=== PATIENT | female | born 1945 | race Caucasian/White ===

== ENCOUNTER 2022-02-22 10:15 | Emergency (ER) | payer MEDICARE, SELFPAY ==
--- NOTE | ~2022-02-22 | XR_ITS ---
EXAMINATION: XR KNEE, RIGHT CLINICAL INFORMATION: Right medial knee pain after fall COMPARISON: None TECHNIQUE: Four views of the right knee. FINDINGS: Bones have normal alignment. The joint spaces are normal. No arthritic deformity. No fracture, subluxation or joint effusion. Small enthesophyte is present at the upper pole of the patella. XR/XR knee RT 4V IMPRESSION: No acute findings. No fracture or malalignment at the right knee.
[2022-02-22 10:37] VITALS: BP 152/46; PULSE 74; RESP 16; TEMP 36.7; O2SAT 100; BMI 19.3
[2022-02-22 14:42] VITALS: BP 182/77; PULSE 73; RESP 16; TEMP 36.9; O2SAT 100
--- OUTSIDE RECORDS SUMMARY | 2022-02-22 14:50 | XMS_ITS | Continuity of Care Document ---
:1945 Author Organization [facility] Address [address] [phone]- Care Team Providers Name Role Phone Brittni Stern MD Primary Care Physician Encounter [facility] NB [id number] Date(s): 07/12/21 - 08/11/21 [facility] [address] [place] [address]- Attending Physician: Tomeka Dumas Admitting Physician: Tomeka Dumas Referring Physician: AdmtrTomeka Allergies, Adverse Reactions, Alerts No Known Medication Allergies Immunizations Given and Recorded Vaccine Date Status Refusal Reason SARS-CoV-2 (COVID-19) Ad26 vaccine 08/18/20 Recorded pneumococcal 23-valent vaccine1 10/26/17 Given tetanus/diphtheria/pertussis, acel(Tdap) 10/28/16 Given pneumococcal 13-valent vaccine 10/28/16 Given 1Result Comment: [10/26/2017] [facility]# [id number] Medications alendronate 70 mg oral tablet 1 tablet = 70 mg, By Mouth, Every week, dx: osteoporosis, # 12 tablet, 3 Refills, Maintenance, 07/10/20 8:06:00 EDT, Tablet, [facility]/pharmacy #[id number], 157, cm, 07/10/20 7:42:00 EDT, Height Start Date: 07/10/20 Stop Date: 06/11/21 Status: Orderedmetoprolol 25 mg oral tablet 50 mg, 2, tablet, By Mouth, Daily, # 180 tablet, Refills 3, Tot. Refills 3, Maintenance, 07/10/20 8:07:00 EDT, Route to Pharmacy Electronically, [facility]/pharmacy #[id number], 157, cm, 07/10/20 7:42:00 EDT, Height Start Date: 07/10/20 Stop Date: 07/05/21 Status: OrderedVitamin D3 2000 intl units oral tablet 1 tablet = 2,000 International_Units, By Mouth, Daily, please take daily per Dr. Stenr., # 90 tablet, 1 Refills, Maintenance, 05/20/18 19:36:34 EST Start Date: 05/20/18 Stop Date: 11/16/18 Status: Ordered Problem List Condition Effective Dates Status Health Status Informant Alcoholism(Confirmed) Active Essential hypertension(Confirmed) Active Osteoporosis(Confirmed) Active Vitamin D deficiency(Confirmed) Active Social History Social History Type Response Smoking Status Never (less than 100 in life time) entered on: 07/10/20 Sex
--- OUTSIDE RECORDS SUMMARY | 2022-02-22 14:50 | XMS_ITS | Continuity of Care Document ---
:1945 Author Organization [facility] Address [address] [place] [address]- Care Team Providers Name Role Phone Brittni Stern MD Primary Care Physician Encounter [facility] NBR [id number] Date(s): 07/10/20 - 07/17/20 [facility] [address] [place] [address] Attending Physician: Brittni Stern MD Allergies, Adverse Reactions, Alerts No Known Medication Allergies Immunizations Given and Recorded Vaccine Date Status Refusal Reason pneumococcal 23-valent vaccine1 10/26/17 Given tetanus/diphtheria/pertussis, acel(Tdap) 10/28/16 Given pneumococcal 13-valent vaccine 10/28/16 Given 1Result Comment: [10/26/2017] [facility]# [id number] Medications alendronate 70 mg oral tablet 1 tablet = 70 mg, By Mouth, Every week, dx: osteoporosis, # 12 tablet, 3 Refills, Maintenance, 07/10/20 8:06:00 EDT, Tablet, [facility]/pharmacy #[id number], 157, cm, 07/10/20 7:42:00 EDT, Height Start Date: 07/10/20 Stop Date: 06/11/21 Status: Orderedmetoprolol 25 mg oral tablet 50 mg, 2, tablet, By Mouth, Daily, # 180 tablet, Refills 3, Tot. Refills 3, Maintenance, 07/10/20 8:07:00 EDT, Route to Pharmacy Electronically, [facility]/pharmacy #[id number], 157, cm, 07/10/20 7:42:00 EDT, Height Start Date: 07/10/20 Stop Date: 07/05/21 Status: OrderedVitamin D3 2000 intl units oral tablet 1 tablet = 2,000 International_Units, By Mouth, Daily, please take daily per Dr. Stern., # 90 tablet, 1 Refills, Maintenance, 05/20/18 19:36:34 EST Start Date: 05/20/18 Stop Date: 11/16/18 Status: Ordered Problem List Condition Effective Dates Status Health Status Informant Alcoholism(Confirmed) Active Essential hypertension(Confirmed) Active Osteoporosis(Confirmed) Active Vitamin D deficiency(Confirmed) Active Vital Signs Most recent to oldest [Reference Range]: 1 Height 157 cm (07/10/20 7:42 AM) Weight 53.5 kg (07/10/20 7:42 AM) Oxygen Saturation [94-100 %] 98 % (07/10/20 7:42 AM) Pulse Rate [55-90 bpm] 62 bpm (07/10/20 7:42 AM) Body Mass Index [18.5-24.99] 21.7 (07/10/20 7:42 AM) Blood Pressure [90-138/55-84 mm Hg] 138/72 mm Hg (07/10/20 7:42 AM) Blood pressure sites Arm, left (07/10/20 7:42 AM) Weight Obtained Via Standing scale (07/10/20 7:42 AM) Social History Social History Type Response Smoking Status Never (less than 100 in life time) entered on: 07/10/20 Sex
--- OUTSIDE RECORDS SUMMARY | 2022-02-22 14:51 | XMS_ITS | Continuity of Care Document ---
:1945 [facility] Address [address] [phone]- Care Team Providers Name Role Phone Brittni Stern MD Primary Care Physician Encounter [facility] NB [id number] Date(s): 11/04/21 - 12/04/[facility] [address] [place] [address]- Attending Physician: Tomeka Dumas Admitting Physician: AdmTomeka flores Referring Physician: AdmtrTomeka Allergies, Adverse Reactions, Alerts No Known Medication Allergies Immunizations Given and Recorded Vaccine Date Status Refusal Reason SARS-CoV-2 (COVID-19) Ad26 vaccine 08/18/20 Recorded pneumococcal 23-valent vaccine1 10/26/17 Given tetanus/diphtheria/pertussis, acel(Tdap) 10/28/16 Given pneumococcal 13-valent vaccine 10/28/16 Given 1Result Comment: [10/26/2017] [facility]# [id number] Medications alendronate 70 mg oral tablet 1 tablet = 70 mg, By Mouth, Every week, dx: osteoporosis, # 12 tablet, 3 Refills, Maintenance, 07/10/20 8:06:00 EDT, Tablet, [facility]/pharmacy #[id number], 157, cm, 07/10/20 7:42:00 EDT, Height Start Date: 07/10/20 Stop Date: 06/11/21 Status: Orderedmetoprolol 25 mg oral tablet 50 mg, 2, tablet, By Mouth, Daily, # 180 tablet, Refills 3, Tot. Refills 3, Maintenance, 08/12/21 11:32:00 EDT, Route to Pharmacy Electronically, [facility]/pharmacy #[id number], 157, cm, 07/10/20 7:42:00 EDT, Height Start Date: 08/12/21 Stop Date: 08/07/22 Status: OrderedVitamin D3 2000 intl units oral [...]
--- OUTSIDE RECORDS SUMMARY | 2022-02-22 14:51 | XMS_ITS | Continuity of Care Document ---
:1945 Author Organization [facility] Address [address] [place] [address]- Care Team Providers Name Role Phone Brittni Stern MD Primary Care [id number] Date(s): 08/10/19 - 12/08/19 [facility] [address] [place] [address]- Attending Physician: Brittni Stern MD Allergies, Adverse Reactions, Alerts No Known Medication Allergies Immunizations Given and Recorded Vaccine Date Status Refusal Reason pneumococcal 23-valent vaccine1 10/26/17 Given tetanus/diphtheria/pertussis, acel(Tdap) 10/28/16 Given pneumococcal 13-valent vaccine 10/28/16 Given 1Result Comment: [10/26/2017] [facility]# [id number] Medications alendronate 70 mg oral tablet 1 tablet = 70 mg, By Mouth, Every week, dx: osteoporosis, # 12 tablet, 3 Refills, Maintenance, 11/02/18 10:27:36 EDT, Tablet Start Date: 11/02/18 Stop Date: 10/04/19 Status: Orderedmetoprolol 25 mg oral tablet 50 mg, 2, tablet, By Mouth, Daily, # 180 tablet, Refills 3, Tot. Refills 3, Maintenance, 11/02/18 10:27:36 EDT, Route to Pharmacy Electronically, [id number], [facility]/pharmacy #[id number] Start Date: 11/02/18 Status: OrderedVitamin D3 2000 intl units oral tablet 1 tablet = 2,000 International_Units, By Mouth, Daily, please take daily per Dr. Stern., # 90 tablet, 1 Refills, Maintenance, 02/03/19 19:36:34 EST Start Date: 05/20/18 Stop Date: 11/16/18 Status: Ordered Problem List Condition Effective Dates Status Health Status Informant Alcoholism(Confirmed) Active Essential hypertension(Confirmed) Active Osteoporosis(Confirmed) Active Vitamin D deficiency(Confirmed) Active Social History Social History Type Response Smoking Status Never smoker entered on: 09/30/16 Sex
--- OUTSIDE RECORDS SUMMARY | 2022-02-22 14:51 | XMS_ITS | Continuity of Care Document ---
:1945 Author Organization [facility] Address [address] [place] [address]- Care Team Providers Name Role Phone Brittni Stern MD Primary Care Physician Encounter [facility] NBR [id number] Date(s): 11/08/19 - 12/08/19 [facility] [address] [place] [address]- Attending Physician: Tomeka Dumas Admitting Physician: AdmTomeka flores Referring Physician: Admtr, Ar8 Allergies, Adverse Reactions, Alerts No Known Medication Allergies Immunizations Given and Recorded Vaccine Date Status Refusal Reason pneumococcal 23-valent vaccine1 10/26/17 Given tetanus/diphtheria/pertussis, acel(Tdap) 10/28/16 Given pneumococcal 13-valent vaccine 10/28/16 Given 1Result Comment: [10/26/2017] [facility]# [id number] Medications alendronate 70 mg oral tablet 1 tablet = 70 mg, By Mouth, Every week, dx: osteoporosis, # 12 tablet, 3 Refills, Maintenance, 11/02/18 10:27:36 EDT, Tablet Start Date: 11/02/18 Stop Date: 10/04/19 Status: Orderedmetoprolol 25 mg oral tablet 50 mg, 2, tablet, By Mouth, Daily, # 180 tablet, Refills 3, Tot. Refills 3, Maintenance, 11/02/18 10:27:36 EDT, Route to Pharmacy Electronically, [id number], [facility]/pharmacy #[id number] Start Date: 11/02/18 Status: OrderedVitamin D3 [...]
--- OUTSIDE RECORDS SUMMARY | 2022-02-22 14:51 | XMS_ITS | Continuity of Care Document ---
:1945 Author Organization [facility] Adult [facility] Address [address] [place] [address]- Care Team Providers Name Role Phone Brittni Stern MD Primary Care Physician Encounter [facility] NBR [id number] Date(s): 08/12/21 - 09/11/21 [facility] Adult [facility] [address] [place], [place] [phone]- Allergies, Adverse Reactions, Alerts No Known Medication Allergies Immunizations Given and Recorded Vaccine Date Status Refusal Reason SARS-CoV-2 (COVID-19) Ad26 vaccine 08/18/20 Recorded pneumococcal 23-valent vaccine1 10/26/17 Given tetanus/diphtheria/pertussis, acel(Tdap) 10/28/16 Given pneumococcal 13-valent vaccine 10/28/16 Given 1Result Comment: [10/26/2017] [facility]# [id number] Medications alendronate 70 mg oral tablet 1 tablet = 70 mg, By Mouth, Every week, dx: osteoporosis, # 12 tablet, 3 Refills, Maintenance, 07/10/20 8:06:00 EDT, Tablet, [facility]/pharmacy #[id number], 157, cm, 07/10/20 7:42:00 EDT, Height Start Date: 07/10/20 Stop Date: 06/11/21 Status: Orderedmetoprolol 25 mg oral tablet 50 mg, 2, tablet, By Mouth, Daily, # 180 tablet, Refills 3, Tot. Refills 3, Maintenance, 08/12/21 11:32:00 EDT, Route to Pharmacy Electronically, [facility]/pharmacy #[id number], 157, cm, 07/10/20 7:42:00 EDT, Height [...]
--- OUTSIDE RECORDS SUMMARY | 2022-02-22 14:51 | XMS_ITS | Continuity of Care Document ---
:1945 Author Organization [facility] Adult [facility] Address [address] [place] [address]- Care Team Providers Name Role Phone Brittni Stern MD Primary Care Physician Encounter [facility] NBR [id number] Date(s): 08/12/21 - 12/04/21 [facility] [employer] [facility] Adult Medicine [address] [place] [address]- Attending Physician: Brittni Stern MD Allergies, Adverse Reactions, Alerts No Known Medication Allergies Immunizations Given and Recorded Vaccine Date Status Refusal Reason SARS-CoV-2 (COVID-19) Ad26 vaccine 08/18/20 Recorded pneumococcal 23-valent vaccine1 10/26/17 Given tetanus/diphtheria/pertussis, acel(Tdap) 10/28/16 Given pneumococcal 13-valent vaccine 10/28/16 Given 1Result Comment: [10/26/2017] [facility]# [id number] Medications alendronate 70 mg oral tablet 1 tablet = 70 mg, By Mouth, Every week, dx: osteoporosis, # 12 tablet, 3 Refills, Maintenance, 07/10/20 8:06:00 EDT, Tablet, [facility]/pharmacy #[id number], 157, cm, 07/10/20 7:42:00 EDT, Height Start Date: 07/10/20 Stop Date: 06/11/21 Status: Orderedmetoprolol 25 mg oral tablet 50 mg, 2, tablet, By Mouth, Daily, # 180 tablet, Refills 3, Tot. Refills 3, Maintenance, 08/12/21 11:32:00 EDT, Route to Pharmacy Electronically, [facility]/pharmacy #[id number], 157, cm, 07/10/20 7:42:00 EDT, [...]
--- OUTSIDE RECORDS SUMMARY | 2022-02-22 14:51 | XMS_ITS | Continuity of Care Document ---
:1945 Author Organization [facility] Adult Medicine Address [address] [phone]- Care Team Providers Name Role Phone Brittni Stern MD Primary Care Physician Encounter [facility] NBR [id number] Date(s): 07/29/21 - 08/28/21 [facility] Adult Medicine [address] [place], [place] [phone]- Allergies, Adverse Reactions, Alerts No Known Medication Allergies Immunizations Given and Recorded Vaccine Date Status Refusal Reason SARS-CoV-2 (COVID-19) Ad26 vaccine 08/18/20 Recorded pneumococcal 23-valent vaccine1 10/26/17 Given tetanus/diphtheria/pertussis, acel(Tdap) 10/28/16 Given pneumococcal 13-valent vaccine 10/28/16 Given 1Result Comment: [10/26/2017] [facility]# [id number] Medications alendronate 70 mg oral tablet 1 tablet = 70 mg, By Mouth, Every week, dx: osteoporosis, # 12 tablet, 3 Refills, Maintenance, 07/10/20 8:06:00 EDT, Tablet, [facility]/pharmacy #[id number], 157, cm, 07/10/20 7:42:00 EDT, Height Start Date: 07/10/20 Stop Date: 06/11/21 Status: Orderedmetoprolol 25 mg oral tablet 50 mg, 2, tablet, By Mouth, Daily, # 180 tablet, Refills 3, Tot. Refills 3, Maintenance, 08/12/21 11:32:00 EDT, Route to Pharmacy Electronically, [facility]/pharmacy #[id number], 157, cm, 07/10/20 [...]
[2022-02-22] MEDS: Ibuprofen 800 MG TABLET PO (15:14)
--- NOTE | 2022-02-22 15:23 | ED_ITS ---
HPI - General Adult General Chief complaint: Fall Stated complaint: Fall/R knee pain Time Seen by Provider: 02/22/22 14:38 Source: patient Mode of arrival: ambulatory Limitations: no limitations History of Present Illness HPI narrative: 76 yold female presents to the ED for right knee pain. patient states she trip ped and fell unto her knee. patient denes hitting head or loss of consciousness. Patient denies any fever, chills, redness, nauseaa, headache, or weakness. Related Data Previous Rx's Medication Instructions Recorded naproxen 500 mg tablet 500 mg PO BID PRN pain 7 days #14 02/22/22 tabs prednisone 20 mg tablet 40 mg PO DAILY 5 days #10 tabs 02/22/22 Allergies Allergy/AdvReac Type Severity Reaction Status Date / Time No Known Allergies Allergy Unverified 01/02/20 16:03 [No Known Allergies*] Review of Systems Review of Systems: Right knee pain. Yes all other systems are reviewed and are negative [facility] Past Medical History Medical History (Updated 02/22/22 @ 15:37 by CATHI Restrepo) HTN (hypertension) Social History Social History Alcohol intake: never Smoked in Last 30 Days: No Use of substances other than those prescribed or required for medical reasons: No Advance Directives: Yes Advance Directives Information Provided: Yes Advance Directives on File: No Physical Exam ED Vital Signs: Vital Signs - 24 hr 02/22/22 10:37 02/22/22 14:42 Temperature 98.0 F 98.4 F Pulse Rate 74 73 Respiratory Rate 16 16 Blood Pressure 152/46 H 182/77 H Pulse Oximetry 100 100 Oxygen Delivery Method Room Air Room Air BMI result Body Mass Index 19.3 Const General: cooperative, healthy appearing, comfortable, no acute distress, well developed, alert, awake and Physically active Orientation/consciousness: oriented to person, oriented to place, oriented to time and patient oriented x3 HENMT Head: Yes normal to inspection, Yes No palpable skull fracture present, Yes normocephalic and No atraumatic Eyes General: appearance normal, both eyes and all related structures Neck Neck: Yes normal visual inspection, Yes full ROM, Yes no lymphadenopathy, Yes no meningeal signs, Yes trachea midline, Yes supple, No anterior neck swelling and No tender Chest Chest palpation & inspection: normal inspection of the chest and normal palpation of entire chest wall Resp Effort & Inspection: normal respiratory effort and able to speak in complete sentences Cardio Jugular venous distension: no JVD Heart sounds: S1 normal heart sound present and S2 normal heart sound present GI Inspection: Yes normal to inspection and No abdominal wall ecchymosis Palpation (GI): Soft to palpation, not firm, nontender, no guarding and not rigid General: No CVA tenderness and Yes no CVA tenderness Back/Spine/Pelvis Back: no CVA tenderness, No CVA tenderness and No back tenderness Skin General skin exam: no rashes or lesions noted and elasticity normal Neuro General: oriented to person, oriented to place, oriented to time, patient oriented x3, gait normal and no meningeal signs Extrem General: Yes normal to inspection and Yes full ROM Knee images: 1. mild tenderness on palpation with and movement. patient denies redness, swelling, defromity, stiffness, coldness/hotness. Motor, neuro, and vascular exam is intact Psych Appearance: grossly normal, well kempt and not disheveled Course Course Course Narrative: X-ray ordered. Reevaluation(s) Reevaluation #1: X-ray negative for any fracture. Patient is safe for discharge. Patient placed in Kev wrap. Patient able to walk on her own. Time: 15:35 Medications Administered Discontinued Medications Generic Name Dose Route Start Last Admin Trade Name Freq PRN Reason Stop Dose Admin Ibuprofen 800 mg 02/22/22 15:00 02/22/22 15:14 Ibuprofen 800 Mg Tablet PO 02/22/22 15:01 800 mg ONCE ONE Administration Medical Decision Making [facility] Narrative Medical decision making narrative: Knee contusion/sprain Discharge Plan Discharge Clinical Impression: Knee sprain, Contusion Patient Disposition: Home, Self-Care Instructions: Knee Sprain (ED), R.I.C.E. Treatment (ED) Additional Instructions: X-ray came back negative for any fractures. Please follow-up with your primary care provider. Return to the ED immediately any swelling, redness, stiffness, i nability to walk, fever, chills from a blue/discoloration, chest pain, shortness of breath, or any other concerning symptoms. Prescriptions: New naproxen 500 mg tablet 500 mg PO BID PRN (Reason: pain) 7 Days Qty: 14 0RF prednisone 20 mg tablet 40 mg PO DAILY 5 Days Qty: 10 0RF Interventions: ED Discharge Assessment Last Done: 02/22/22 16:10 Discharge Date/Time: 02/22/22 16:14 Print Language: Turkmen
== END 2022-02-22 16:14 | disposition home or self-care (01) ==
PROVIDERS: Emergency Provider Emergency Medicine; PCP Family Medicine
DX: S83.91XA Sprain of unspecified site of right knee, initial encounter (principal); S80.01XA Contusion of right knee, initial encounter; W10.8XXA Fall (on) (from) other stairs and steps, initial encounter; Y93.9 Activity, unspecified; Y92.9 Unspecified place or not applicable; Y99.9 Unspecified external cause status
CPT/HCPCS: 73564; 99283; 99284

== ENCOUNTER 2024-11-15 09:55 | Emergency (ER) | payer MEDICARE, SELFPAY ==
--- NOTE | ~2024-11-15 | CT_ITS ---
EXAMINATION: CT HEAD WITHOUT CONTRAST CLINICAL INFORMATION: Fall with head trauma, posterior right-sided headache COMPARISON: None available. TECHNIQUE: Contiguous axial imaging was performed from the skull base to vertex without intravenous administration of contrast. This CT examination was performed using dose optimization techniques as appropriate, variously including the following: *Automated exposure control *Adjustment of mA and/or kV according to patient size (this includes techniques or standardized protocols for targeted exams where dose is matched to indication/reason for exam; i.e. extremities or head) *Use of iterative reconstruction technique DLP: 524 mGY*cm FINDINGS: There is no acute ischemic change. Heterogeneous patchy hypodensities are present in the periventricular white matter. There is no intracranial hemorrhage. There is no mass-effect or midline shift. Basal cisterns and ventricles are within normal limits for age/cerebral volume. Orbits are symmetrical and unremarkable. Mild mucosal thickening is present in the posterior wall right maxillary sinus. There is a subtle lucency in posterior wall right maxillary sinus. CT/CT head/brain wo IV con IMPRESSION: No acute intracranial abnormality. Possible subtle nondisplaced fracture posterior wall right maxillary sinus versus vascular channel Electronically signed by: Yuri Motley MD 11/15/2024 11:23 AM EDT
[2024-11-15 10:02] VITALS: BP 187/79; PULSE 107; RESP 16; TEMP 36.1; O2SAT 98; BMI 19.1
--- NOTE | 2024-11-15 10:35 | ED_ITS ---
HPI - Fall General Chief Complaint: Fall Stated Complaint: fell weds night wants to make sure shes ok Time Seen by Provider: 11/15/24 10:28 Related Data Previous Rx's ?Medication ?Instructions ?Recorded naproxen 500 mg tablet 500 mg PO BID PRN pain 7 day s #14 02/22/22 tabs prednisone 20 mg tablet 40 mg (2 x 20 mg) PO DAILY 5 days 02/22/22 #10 tabs Allergies Allergy/AdvReac Type Severity Reaction Status Date / Time No Known Allergies (No Known Allergy Verified 11/15/24 10:04 Allergies*) [facility] Past Medical History Medical History (Updated 02/23/22 @ 00:02 by Background Giselle) HTN (hypertension) Social History Social History Alcohol intake: never Physical Exam Vital Signs: Vital Signs: Last Vital Signs Temp 96.9 F 11/15/24 10:02 Pulse 107 H 11/15/24 10:02 Resp 16 11/15/24 10:02 BP 187/79 H 11/15/24 10:02 Pulse Ox 98 11/15/24 10:02 O2 Del Method Room Air 11/15/24 10:02 BMI result Body Mass Index 19.1 Discharge Plan Discharge Prescriptions: No Action naproxen 500 mg tablet 500 mg PO BID PRN (Reason: pain) 7 Days Qty: 14 0RF prednisone 20 mg tablet 40 mg PO DAILY 5 Days Qty: 10 0RF Print Language: Slovenian
--- NOTE | 2024-11-15 10:48 | ED_ITS ---
HPI - Head Injury General Chief complaint: Fall Stated complaint: fell night wants to make sure shes ok Time Seen by Provider: 11/15/24 10:28 Source: patient Mode of arrival: ambulatory Limitations: no limitations History of Present Illness ED Provider: Liliana Bailey NP HPI Narrative: Patient is a 78-year-old female who presents emergency department for evaluation. She reports Monday night, approximately 36 hours ago she had a mechanical trip and fall at home. She was getting out of bed and did not realize her dog was lying on the floor next to the bed ultimately tripped striking her head onto a dresser. Had a small laceration to the right posterior head but bleeding is well controlled. No use of anticoagulants but does take a low-dose aspirin daily. Denies loss of consciousness with this. She was able to get up unassisted and went back to bed. She states that she has had a mild intermittent headache localized to this area. Denies dizziness, lightheadedness, vision changes, neck pain, neck stiffness, numbness or tingling of the extremities, bladder bowel dysfunction. Related Data Previous Rx's ?Medication ?Instructions ?Recorded naproxen 500 mg tablet 500 mg PO BID PRN pain 7 day s #14 02/22/22 tabs prednisone 20 mg tablet 40 mg (2 x 20 mg) PO DAILY 5 days 02/22/22 #10 tabs amoxicillin 875 mg-potassium 1 tab PO BID #10 tabs 05/11 clavulanate 125 mg tablet Allergies Allergy/AdvReac Type Severity Reaction Status Date / Time No Known Allergies (No Known Allergy Verified 11/15/24 10:04 Allergies*) Review of Systems Review of Systems: Yes all other systems are reviewed and are negative [facility] Past Medical History Attestation statement: The following information was validated with the patient. Source: old records reviewed Medical History HTN (hypertension) Social History Social History Alcohol intake: never Smoked in Last 30 Days: No Use of substances other than those prescribed or required for medical reasons: No Advance Directives: No Advance Directives Information Provided: Yes Physical Exam Vital Signs: Vital Signs: Last Vital Signs Temp 97.9 F 11/15/24 11:53 Pulse 72 11/15/24 11:53 Resp 16 11/15/24 11:53 BP 194/82 H 11/15/24 11:53 Pulse Ox 99 11/15/24 11:53 O2 Del Method Room Air 11/15/24 11:53 BMI result Body Mass Index 19.1 Appearance: Alert.?Oriented to person, place and time. No acute distress.?Normal affect. Head: Normocephalic. 0.5 cm scabbed laceration to the right occipital scalp. No active bleeding. Eyes: Pupils equal, round and reactive to light. EOMI. Conjunctiva and sclera normal? No Garcia sign noted. No raccoon eyes noted ENT: No septal hematoma, nares patent bilaterally. External auditory canal normal tympanic membrane pearly hernandez and intact bilaterally. Dentition normal, no fractured teeth. No lesions or lacerations of oropharynx. Uvula midline. Moist mucous membranes. Neck: Normal inspection.? Neck supple.??No palpable tenderness, step-off, defor mities. CVS: Heart sounds normal. Normal heart rate and rhythm.? Pulses normal.?? Respiratory: No respiratory distress.? Lung sounds clear to auscultation bi laterally?? Abdomen: Soft and non-tender. Normoactive bowel sounds. ?? Skin: Skin warm and dry.? Normal skin color.? Normal skin turgor.?? Extremities: No lower extremity edema.? Neuro: Moves all extremities spontaneously. Sensation intact bilaterally. CN II- XII intact. No focal neuro deficits. Course Reevaluation(s) Reevaluation #1: CT imaging reveals no evidence of acute intracranial pathology no ICH, SDH, skull fracture. There was incidental finding of a subtle lucency along the posterior wall of the right maxillary sinus concerning for possible subtle nondisplaced fracture or vascular channel. No direct facial injury, no sinus tenderness on examination, denying any recent nasal congestion or rhinorrhea, no evidence of odontogenic infection/lesion on examination. Reviewed with the patient, given father may have been counter force reaction resulting in possible fracture, advised treatment prophylactic course of antibiotics and outpatient follow-up with ENT for further evaluation, patient verbalizes understanding Patient with asymptomatic hypertension 187/79, admitting that she did not take her metoprolol this morning as she was coming to emergency department she forgot. She states that she is very good about taking it daily. She is currently asymptomatic with this hypertension. She declines any intervention in the emergency department. We discussed monitoring of blood pressure at home and outpatient follow-up with primary care provider as well as strict return precautions. All questions answered Time: 11:38 Medical Decision Making Medical Decision Making MDM Narrative: Patient is a 78-year-old female with past medical history of hypertension who presents emergency department for evaluation after mechanical trip and fall approximately 36 hours ago as per HPI. Initially sustained head laceration at the time my examination is scabbed over. No associated hematoma. Reports last tetanus vaccination within the past 5 years. She does endorse having a localized headache to this area intermittently. On evaluation has no focal neurological deficits. Takes a low-dose aspirin otherwise no use of anticoagulants, or known coagulation disorders. Based on mechanism of injury and physical examination, have low suspicion for ICH, SDH, skull fracture, however given her age and intermittent headache associated with this will obtain CT of the head to evaluate further. Has a benign cervical spine examination, not consistent with cervical spine fracture or subluxation. Differential Diagnosis Differential Diagnoses: The differential diagnosis associated with the presentation includes (See narrative above) Admission/Observation Consideration of admission/observation: Escalation of care including admission/observation considered (See narrative above) Radiology Impression Discussion of test interpretation with radiology: I have reviewed the radiologist's reading. Radiologist Impression: CT/CT head/brain wo IV con IMPRESSION: No acute intracranial abnormality. Possible subtle nondisplaced fracture posterior wall right maxillary sinus versus vascular channel External Record Review External record reviewed: Outpatient record Chronic Conditions Patient?s care impacted by: Hypertension Discharge Plan Discharge Clinical Impression: Acute head injury without loss of consciousness, Abnormal computed tomography of paranasal sinus, Elevated blood pressure reading with diagnosis of hypertension Patient Disposition: Home, Self-Care Instructions: Head Injury (ED) Additional Instructions: As discussed, CT imaging does not show evidence of skull fracture or bleeding into the brain which is very reassuring. There was an incidental finding of a subtle irregularity along the posterior wall of your right maxillary sinus. It is possible that this is a benign chronic finding, assist, or potentially a fracture to the sinus wall. Given injury and impact on the right side, you are being treated with a course of prophylactic (preventative) antibiotics. You will require outpatient follow-up with stitching machine feeder or offbearer; ENT I provided contact information for the ENT office associated with our hospital. Should you have any difficulty being seen as a new patient, I have also provided contact information for [facility]. As discussed, it is important that you are taking your blood pressure medication as prescribed; metoprolol. You were found to have elevated blood pressure reading while in the emergency department 187/. This may be due to not taking her metoprolol this morning. However, you should consider purchasing an at home blood pressure monitoring device so that you may monitor your blood pressure readings. This is typically recommended to be performed 3 times weekly 2 hours after taking your blood pressure medication when you are sitting down for at least 10 minutes with legs on cross. If you find that you are having continued elevated blood pressure readings, you should follow-up with your primary care doctor Prescriptions: New amoxicillin-pot clavulanate 875-125 mg tablet 1 tab PO BID Qty: 10 0RF No Action naproxen 500 mg tablet 500 mg PO BID PRN (Reason: pain) 7 Days Qty: 14 0RF prednisone 20 mg tablet 40 mg PO DAILY 5 Days Qty: 10 0RF Referrals: Alba Westbrook MD [Physician, Ear, Nose, Throat] Referral Note: possible right maxillary sinus posterior wall fracture after fall, CT imaging Jamie Venegas [Physician, Ear, Nose, Throat] Referral Note: possible sinus fracture after fall Print Language: Uzbek
--- NOTE | 2024-11-15 11:10 | PC.NURSE ---
patient a&ox3, vss, ambulatory with steady gait, pt returned from CT scan, awaiting results, plan of care ongoing
[2024-11-15 11:53] VITALS: BP 194/82; PULSE 72; RESP 16; TEMP 36.6; O2SAT 99
[2024-11-15 12:17] VITALS: BP 194/82; PULSE 72; RESP 16; TEMP 36.6; O2SAT 99
== END 2024-11-15 12:18 | disposition home or self-care (01) ==
PROVIDERS: Emergency Provider Emergency Medicine Emergency Medical Services; PCP Family Medicine
DX: S09.90XA Unspecified injury of head, initial encounter (principal); J34.89 Other specified disorders of nose and nasal sinuses; I10 Essential (primary) hypertension; W01.0XXA Fall on same level from slipping, tripping and stumbling without subsequent striking against object, initial encounter; Y93.9 Activity, unspecified; Y92.9 Unspecified place or not applicable; Y99.9 Unspecified external cause status; R51.9 Headache, unspecified
CPT/HCPCS: 70450; 99284

== ENCOUNTER → 2024-11-15 10:44 | Outpatient (BNV) | payer MEDICARE, SELFPAY | PROVIDERS: Emergency Provider Emergency Medicine Emergency Medical Services; PCP Family Medicine; Visit Provider Radiology Diagnostic Radiology | DX: S09.90XA Unspecified injury of head, initial encounter (principal) | CPT/HCPCS: 70450 ==